=== PATIENT | female | born 1945 | race Caucasian/White ===

== ENCOUNTER 2022-02-20 10:37 | Day surgery (SDC) | payer MEDICARE, OTHER ==
[~2022-02-20] VITALS: Ht 160 cm; Wt 79.5 kg
--- NOTE | ~2022-02-20 | OR ---
[facility] [address] [place], [place] [address] Draft DATE OF OPERATION: 02/20/2022 SURGEON: Marisol Mcmahan MD PREOPERATIVE DIAGNOSIS: Constipation. POSTOPERATIVE DIAGNOSES: 1. Mild proctitis, unlikely pathologic. 2. Sigmoid diverticulosis. PROCEDURE: Total colonoscopy to cecum with biopsy of left colon and rectum. ANESTHESIA: Intravenous sedation; fentanyl 100 mcg and versed 3 mg. INDICATION: This 76-year-old white woman is a patient of HEIDI Corrigan. The patient lives in , [place]. She has had longstanding constipation, which is still problematic despite using "stool softeners." She takes no medications likely to cause constipation, but she does take tramadol from time to time. She does have family history of colon cancer in her sister. She is admitted at this time to undergo colonoscopy. He understands the risks of bleeding, infection, and perforation. Of note, the patient has undergone an MRI on a routine basis and is said to have multiple sclerosis, but has had no new plaques identified in the past three years. FINDINGS: The prep was excellent. Complete colonoscopy was undertaken to the cecum without question. She had diverticula of the sigmoid which was not extensive and without sign of stricture or narrowing in any way. She had mild proctitis, probably bowel prep related. A biopsy was taken of the left colon and rectum. There was no evidence of polyps, cancer, or other abnormality. PROCEDURE: The patient was brought to the endoscopy suite and placed in lateral decubitus position, given intravenous sedation points slurred speech and nystagmus. Full cardiopulmonary monitoring was maintained. Digital rectal examination was found to be normal. An Olympus video colonoscope was passed in the rectum and manipulated throughout the PATIENT NAME: AYANA WOLFE OPERATIVE REPORT DATE OF : 45 REPORT #: [id number] PHYSICIAN: MARISOL MCMAHAN MD PCP: KOKI PULLIAM REPORT IS CONFIDENTIAL AND NOT TO BE RELEASED WITHOUT AUTHORIZATION [facility] [address] [place], [place] [address] Draft colon noting a few diverticula of the sigmoid and left colon. Scope was ultimately advanced to the cecum, which was fully intubated. The ileocecal valve and appendiceal orifice were normal. The scope was withdrawn from that point and examination throughout showed no sign of abnormality until the left colon where there was mild edematous change for which biopsy was obtained. Further withdrawal showed similar findings in the rectum. Biopsies were obtained there as well. Retroflexed view was normal. The scope was removed. The patient was taken to the recovery room in good condition concluding diagnosis constipation, not related to obstructive symptoms. Diverticulosis may contribute to it to some degree. Underlying multiple sclerosis may also impact on this phenomenon. PLAN: We would recommend MiraLAX 1 cap or packet daily as well as high-fiber diet. She will return to the ongoing care of HEIDI Corrigan MD RUPA Singer/AMADO /[id number] cc: HEIDI Corrigan Copies: ~ PATIENT NAME: AYANA WOLFE OPERATIVE REPORT DATE OF : 45 REPORT #: [id number] PHYSICIAN: MARISOL MCMAHAN MD PCP: KOKI PULLIAM REPORT IS CONFIDENTIAL AND NOT TO BE RELEASED WITHOUT AUTHORIZATION
[~2022-02-20 10:37] MED LIST: INNOPRAN XL80 MG PO; KETOROLAC TROME10 MG PO; LOW DOSE ASPIRI81 MG PO; TYSABRI300 MG/15 IV; ULTRAM50 MG PO; VITAMIN D350 MC3 PO
--- NOTE | 2022-02-20 11:56 | NUR ---
02/20/22 Willian6 Angela Porter 1153-PATIENT ARRIVED TO PACU ON RA RR EVEN. PATIENT AWAKE DROWSY DENIES PAIN OR NAUSEA LAYING LEFT LATERAL. ABDOMEN SOFT ENCOURAGED TO PASS GAS. IVF INFUSING. PATIENT CLOSES EYES.
--- NOTE | 2022-02-21 10:40 | PATH ---
[facility] [address] [place], [place] [address] Signed SPECIMEN(S): A DESCENDING/LEFT COLON BIOPSY SPECIMEN(S): B RECTAL BIOPSY SPECIMEN SOURCE: A. DESCENDING/LEFT COLON BIOPSY B. RECTAL BIOPSY CLINICAL HISTORY: Colonoscopy. Family history of colon CA; chronic constipation. Postop Dx: Mild proctitis, diverticulosis. FINAL PATHOLOGIC DIAGNOSIS: A. Colon, descending/left, biopsy: - Fragments of colonic mucosa with no histopathologic abnormality. - Negative for active, chronic, or microscopic colitis. - Negative for dysplasia or malignancy. B. Rectum, biopsy: - Fragments of colorectal mucosa with no histopathologic abnormality. - Negative for active or chronic proctitis. - Negative for dysplasia or malignancy. NAL:cml:C2NR MICROSCOPIC EXAMINATION: Histologic sections of all submitted blocks are examined by light microscopy. These findings, together with the gross examination, support the pathologic diagnosis. GROSS DESCRIPTION: Two specimens are received in two containers labeled with "LL." A. The specimen, labeled "LL, 1," and designated on the requisition "descending/left biopsy," is received in formalin and consists of two fragments of pink-person tissue (0.2-0.3 cm in greatest dimension). The specimen is submitted entirely in cassette (A1). B. The specimen, labeled "LL, 2," and designated on the requisition "rectum biopsy," is received in formalin and consists of two fragments of pink-person tissue (0.2 cm in greatest dimension). The specimen is submitted entirely in cassette (B1). AC (under the direct supervision of a pathologist) The Gross Description was prepared using a voice recognition system. The report was reviewed for accuracy; however, sound-alike word errors, addition and/or deletions may occur. If there is any PATIENT NAME: AYANA WOLFE PATHOLOGY DATE OF : 45 REPORT #: [id number] PHYSICIAN: AKASH BOB PCP: KOKI PULLIAM REPORT IS CONFIDENTIAL AND NOT TO BE RELEASED WITHOUT AUTHORIZATION [facility] [address] [place] [address] Signed question about this report, please contact Client Services. PERFORMING LABORATORY: The technical component was performed by [facility], [address] [place] [id number] (CLIA# [id number]). Professional interpretation was performed by [facility], [address] [address] (CLIA# [id number]). Diagnostician: Nancy Gunter MD Pathologist Electronically Signed 02/21/2022 Copies: ~ PATIENT NAME: AYANA WOLFE PATHOLOGY DATE OF : 45 REPORT #: [id number] PHYSICIAN: [facility] PCP: KOKI PULLIAM REPORT IS CONFIDENTIAL AND NOT TO BE RELEASED WITHOUT AUTHORIZATION
== END 2022-02-20 12:33 | disposition home or self-care (01) ==
LOC: DS 10:37 → OPS 10:37 → DS 10:43 → OPS 12:00 → DS 13:00 → OPS 13:00
PROVIDERS: ATTEND Surgery
PROC: 0DBP8ZX Excision of Rectum, Via Natural or Artificial Opening Endoscopic, Diagnostic (ICD-10-PCS; 2022-02-20)
PROC: 0DBG8ZX Excision of Left Large Intestine, Via Natural or Artificial Opening Endoscopic, Diagnostic (ICD-10-PCS; principal; 2022-02-20 12:00)
DX: K57.30 Diverticulosis of large intestine without perforation or abscess without bleeding (principal); K62.89 Other specified diseases of anus and rectum; Z80.0 Family history of malignant neoplasm of digestive organs; K59.09 Other constipation; G35 Multiple sclerosis; Z86.79 Personal history of other diseases of the circulatory system
CPT/HCPCS: 99153; G0500; J2250; J3010; J7121